=== PATIENT | female | born 2000 | race Hispanic/Latino ===

== ENCOUNTER 2022-04-17 03:34 | Emergency (ER) | payer OTHER ==
--- OUTSIDE RECORDS SUMMARY | 2022-04-17 03:36 | XMS REPORT | Continuity of Care Document ---
:2000 Author Organization [facility] t Address [address] [place] [address] Care Team Providers Name Role Phone PCP, PATIENT DOES NOT HAVE A Primary Care Physician Unavaila MONSTER Arellano Attending Clinician Unavailable Monster Meraz NP Attending Clinician MONSTER MERAZ Admitting Clinician Unavailable Problems Condition Condition Condition Status Onset Resolution Last Treating Co mments Source Name Details Category Date Date Treatment Clinician Date No known No known Disease Unive rs active active ity of problems problems [facility] Allergies, Adverse Reactions, Alerts Allergy Allergy Status Severity Reaction(s) Onset Inactive Treating Comm ents Source Name Type Date Date Clinician NO KNOWN Drug Active Univers ALLERGIE Class ity of [facility] Social History Social Habit Start Date Stop Date Quantity Comments Source Exposure to Not sure [facility] SARS-CoV-2 (event) Medica l Branch Sex Assigned At [birth year] [facility] 00:00:00 00:00:00 [facility] Smoking Status Start Date Stop Date Source Unknown if ever smoked [facility] Medications Ordered Filled Start Stop Current Ordering Indication Dosage Frequency Signature Comments Components Source Medication Medication Date Date Medication? Clinician (SIG) Name Name ketorolac 2020-07- No [id number] 30mg 30 mg, Univers (TORADOL) 09-12 Slow IV ity of injection 21:45: 20:43 Push, [place] 30 mg 00 :00 ONCE, 1 Medical dose, On Branch 07/12/21 at 1545, Routine
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 ibuprofen 2020-07 Yes [id number] 600mg Take 1 Univers 600 mg 2-17 tablet by ity of tablet 00:00: mouth [place] 00 every 6 Medical (six) Branch hours as needed for Pain (scale 4-6). Vital Signs Vital Name Observation Time Observation Value Comments Source Systolic blood 2021-07-12 22:31:00 112 mm[Hg] [facility] Diastolic blood 2021-07-12 22:31:00 78 mm[Hg] [facility] Body temperature 2021-07-12 22:31:00 36.56 Fernanda [facility] Respiratory rate 2021-07-12 22:31:00 18 /min [facility] Oxygen saturation in 2021-07-12 22:31:00 99 /min [facility] Arterial blood by [facility] Pulse oximetry Branch Heart rate 2021-07-12 17:54:00 92 /min [facility] Body weight 2021-07-12 17:54:00 90.719 kg [facility] Procedures Procedure Date / Time Performed Performing Clinician Cherry e CT ABDOMEN PELVIS W 2021-07-12 21:02:26 Monster Meraz [facility] CONTRAST [facility] POCT TEST 2021-07-12 18:04:00 Balbina Powell [facility] LIPASE 2021-07-12 17:59:00 Balbina Powell [facility] COMP. METABOLIC PANEL 2021-07-12 17:59:00 Balbina Powell [facility] ([id number]) [facility] CBC WITH DIFF 2021-07-12 17:59:00 Balbina Powell [facility] URINALYSIS 2021-07-12 17:59:00 Balbina Powell [facility] COVID-19 (ID NOW RAPID 2021-07-12 17:59:[address] [facility] TESTING) Medical [place] NOTICE OF PRIVACY 2021-07-12 17:49:33 Doctor Unassigned, No [facility] PRACTICES Name [facility] CONSENT/REFUSAL FOR 2021-07-12 17:49:01 Doctor Unassigned, No [facility] DIAGNOSIS AND Name [facility] TREATMENT Encounters Start End Encounter Admission Attending Care Care Encounter Source Date/Time Date/Time Type Type Clinicians Facility Department ID 2021-07-12 2021-07-12 Emergency X [facility] ERT [id number] Univers 12:05:00 17:01:00 MONSTER bob [facility] [place] [facility] 2021-07-12 2021-07-12 Emergency [facility] [id number] Univers 12:05:00 17:01:00 Monster MCCORD [id number] paulino [facility] [id number] [facility] [id number] [address] Results Test Description Test Time Test Comments Results Result Comments Source Complete Metabolic Panel 2021-07-12 18:22:29 Test Item Value Reference Range Interpretation Comme nts NA (test code = 7741920192) 139 mmol/L 135-145 K (test code = 0295791425) 4.4 mmol/L 3.5-5.0 CL (test code = 0991909222) 102 mmol/L 98-108 CO2 TOTAL (test code = 27 mmol/L 23-31 5835951088) AGAP (test code = 4999274505) 2-16 BUN (test code = 0517891614) 15 mg/dL 7-23 GLUCOSE (test code = 1176804226) 98 mg/dL 70-110 CREATININE (test code = 0.63 mg/dL 0.50-1.04 3369618023) TOTAL BILI (test code = 1.0 mg/dL 0.1-1.7 2766081495) CALCIUM (test code = 9842713364) 9.5 mg/dL 8.6-10.6 T PROTEIN (test code = 8.2 g/dL 6.3-8.2 2314667783) ALBUMIN (test code = 3348119603) 4.6 g/dL 3.5-5.0 ALK PHOS (test code = 9631878437) 42 U/L 34-122 ALTv (test code = 1742-6) 17 U/L 5-35 AST(SGOT) (test code = 21 U/L 13-40 1306446639) eGFR (test code = 9928005015) mL/min/1.73m2 CADY (test code = CADY) Association of Glomerular Filtration Rate (GFR) and Staging of Kidney Disease* + +--------- + ----+| GFR (mL/min/1.73 m2) ?| With Kidney Damage ?| ?Without Kidney Damage+ +--- + +| ?>90 ?| ?Stage one ?| ? Normal ?+ +-------- + -----+| ?60-89 ?| ?Stage two ?| ? Decreased GFR ? + +--------- + ----+| ?30-59 ?| ?Stage three ?| ? Stage three ? + +--------- + ----+| ?15-29 ?| ?Stage four ? | ? Stage four ?+ +-------- + -----+| ?<15 (or dialysis) ? ?| ?Stage five ? | ? Stage five ?+ +-------- + -----+ *Each stage assumes the associated GFR level has been in effect for at least three months. ?Stages 1 to 5, with or without kidney disease, indicate chronic kidney disease. Notes: Determination of stages one and two (with eGFR >59mL/min/1.73 m2) requires estimation of kidney damage for at least three months as defined by structural or functional abnormalities of the kidney, manifested by either:Pathological abnormalities or Markers of kidney damage (including abnormalities in the composition of the blood or urine or abnormalities in imaging tests). [facility] [id number] 18:22:29 Test Item Value Reference Range Interpretation Comments LIPASE (test code = 8293369454) 98 U/L 0-220 Lab Interpretation (test code = Normal 41285-2) [facility] with [id number] 18:12:27 Test Item Value Reference Range Interpretation Comments WBC (test code = See_Comment [Automated 6690-2) message] The sy stem which generated this result transmitted reference range : 4.30 - 11.10 10*3/?L. The reference range was not used to interpret this result as normal/abnormal . RBC (test code = See_Comment [Automated 789-8) message] The sy stem which generated this result transmitted reference range : 3.93 - 5.25 10*6/?L. The reference range was not used to interpret this result as normal/abnormal . HGB (test code = 12.2 g/dL 11.6-15.0 718-7) HCT (test code = 40.0 % 35.7-45.2 4544-3) MCV (test code = 81.1 fL 80.6-95.5 787-2) MCH (test code = 24.7 pg 25.9-32.8 L 785-6) MCHC (test code = 30.5 g/dL 31.6-35.1 L 786-4) RDW-SD (test code = 42.4 fL 39.0-49.9 08565-2) RDW-CV (test code = 14.3 % 12.0-15.5 788-0) PLT (test code = See_Comment [Automated 777-3) message] The sy stem which generated this result transmitted reference range : 166 - 358 10*3/ ?L. The reference r shahid was not used to interpret this result as normal/abnormal . MPV (test code = 12.3 fL 9.5-12.9 54354-6) NRBC/100 WBC (test See_Comment [Automat ed code = 7788092975) message] The system which generated this result transmitted reference range : 0.0 - 10.0 /100 WBCs. The refer ence range was not u sed to interpret th is result as normal/abnormal . NRBC x10^3 (test code <0.01 See_Comment [Auto mated = 6675770270) message] The s ystem which generated this result transmitted reference range : 10*3/?L. The reference range was not used to interpret this result as normal/abnormal . GRAN MAT (NEUT) % 65.5 % (test code = 770-8) IMM GRAN % (test code 0.40 % = 8085005111) LYMPH % (test code = 27.9 % 736-9) MONO % (test code = 4.7 % 5905-5) EOS % (test code = 1.2 % 713-8) BASO % (test code = 0.3 % 706-2) GRAN MAT x10^3(ANC) 4.78 10*3/uL 1.88-7.09 (test code = 2474573092) IMM GRAN x10^3 (test 0.03 10*3/uL 0.00-0.06 code = 5433249384) LYMPH x10^3 (test code 2.04 10*3/uL 1.32-3.29 = 731-0) MONO x10^3 (test code 0.34 10*3/uL 0.33-0.92 = 742-7) EOS x10^3 (test code = 0.09 10*3/uL 0.03-0.39 711-2) BASO x10^3 (test code <0.03 0.01-0.07 = 704-7) Lab Interpretation Abnormal (test code = 01650-8) [facility] [id number] 18:04:00 Test Item Value Reference Range Interpretation Comments POCT PREG (test code = 1605) negative On board controls acceptable with present C Line (test code = 3574) POCT PREG LOT # (test code = 3575) [id number] POCT PREG TEST DATE (test code = 3576) Lab Interpretation (test code = Normal 04650-9) [facility]"
[2022-04-17 04:51] LABS: Urine Blood 3+ (Negative); Urine Glucose Negative (Negative); Urine Protein Trace (Negative); Urine Specific Gravity 1.025 (1.005-1.030)
[2022-04-17 05:36] LABS: Absolute Lymphocytes (CBC) 2.1 K/uL (0.7-4.9); Hematocrit 38.1 % (36.0-45.0); Lymphocytes % 27.3 % (15.3-44.8); MCV 81.8 fL (80-100); MPV 9.6 fL (7.6-11.3); RBC Red Blood Cell Count 4.66 M/uL (3.86-4.86)
[2022-04-17 06:10] LABS: Potassium 3.8 mmol/L (3.5-5.1)
--- NOTE | 2022-04-17 06:33 | EDPHYS ---
Physician Documentation [facility] Name: Darin Bernard Age: 22 yrs Sex: Female : 2000 Arrival Date: 04/17/2022 Time: 03:38 Bed 28 Private MD: ED Physician Dave Stanford HPI: 04/17 05:51 This 22 yrs old Female presents to ER via Ambulatory with complaints of ms3 Vaginal Bleeding, + Preg <12wks, Abdominal Cramping. 05:51 22-year-old female with no past medical history presents for vaginal spotting ms3 that began just prior to arrival. Patient states she is approximately 12 weeks , last menstrual period November 20, 2021. Patient states she has not had care. Patient states her discomfort is a 3/10 and described as cramping on the left side. Patient denies alleviating or inciting factors. Patient denies nausea, vomiting.. 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 - Social history:: Smoking status: Patient/guardian denies using tobacco, the patient reports quitting approximately 1 years ago. ROS: 05:51 Constitutional: Negative for fever, and chills. ENT: Negative for injury, pain, and ms3 discharge, Neck: Negative for injury, pain, and swelling, Cardiovascular: Negative for chest pain, and palpitations. Respiratory: Negative for shortness of breath, cough, wheezing, and pleuritic chest pain, Abdomen/GI: Negative for abdominal pain, nausea, vomiting, diarrhea, and constipation, MS/Extremity: Negative for injury and deformity, Skin: Negative for injury, rash, and discoloration, Psych: Negative for depression, anxiety, suicide ideation, homicidal ideation, and hallucinations. 05:51 : Positive for vaginal bleeding. 05:51 All other systems are negative. Exam: 05:51 Constitutional: This is a well developed, well nourished patient who is awake, alert, ms3 and in no acute distress. Head/Face: Normocephalic, atraumatic. Neck: Trachea midline, no cervical lymphadenopathy. Supple, full range of motion without nuchal rigidity, or vertebral point tenderness. No Meningismus. Chest/axilla: Normal chest wall appearance and motion. Nontender with no deformity. Cardiovascular: Regular rate and rhythm with a normal S1 and S2. No gallops, murmurs, or rubs. Normal PMI, no JVD. No pulse deficits. Respiratory: Lungs have equal breath sounds bilaterally, clear to auscultation and percussion. No rales, rhonchi or wheezes noted. No increased work of breathing, no retractions or nasal flaring. Abdomen/GI: Soft, non-tender, with normal bowel sounds. No distension or tympany. No guarding or rebound. No evidence of tenderness throughout. Back: No spinal tenderness. No costovertebral tenderness. Full range of motion. Skin: Warm, dry with normal turgor. Normal color with no rashes, no lesions, and no evidence of cellulitis. MS/ Extremity: Pulses equal, no cyanosis. Neurovascular intact. Full, normal range of motion. Psych: Awake, alert, with orientation to person, place and time. Behavior, mood, and affect are within normal limits. Vital Signs: 04:08 BP 105 / 72; Pulse 77; Resp 18 S; Temp 98.2; Pulse Ox 99% on R/A; Weight 90.72 kg; ha1 Height 5 ft. 5 in. (165.10 cm); Pain 3/10; 04:15 BP 105 / 72; Pulse 77; Resp 18; Pulse Ox 99% on R/A; ha1 05:10 BP 95 / 73; Pulse 72; Resp 18 S; Pulse Ox 99% on R/A; ha1 06:51 BP 98 / 65; Pulse 82; Resp 17 S; Pulse Ox 99% on R/A; ha1 04:08 Body Mass Index 33.28 (90.72 kg, 165.10 cm) ha1 MDM: 04:41 Patient medically screened. ms3 05:51 Differential diagnosis: threatened Ab, inevitable Ab, complete Ab, retained Ab, missed ms3 Ab, ectopic . 06:29 Data reviewed: vital signs, nurses notes, lab test result(s), radiologic studies, and ms3 as a result, I will discharge patient. Counseling: I had a detailed discussion with the patient and/or guardian regarding: the historical points, exam findings, and any diagnostic results supporting the discharge/admit diagnosis, lab results, radiology results, the need for outpatient follow up, to return to the emergency department if symptoms worsen or persist or if there are any questions or concerns that arise at home. Special discussion: I discussed with the patient/guardian in detail that at this point there is no indication for admission to the hospital. It is understood, however, that if the symptoms persist or worsen the patient needs to return immediately for re-evaluation. ED course: Discussed labs, ultrasound with patient. Patient to follow-up Dr. Carter in 2 to 3 days. Patient understands agrees plan. All questions were answered. Return precautions discussed include worsening symptoms, or any other concerns. On reevaluation patient is alert and oriented x4, no apparent distress, nontoxic, ambulatory in emergency department, speaking full sentences. 04/17 04:13 Order name: Abo/rh Typing; Complete Time: 06:29 ms3 04/17 04:13 Order name: Basic Metabolic Panel; Complete Time: 06:29 ms3 04/17 04:13 Order name: CBC with Diff; Complete Time: 05:48 ms3 04/17 04:13 Order name: Quantitative Hcg; Complete Time: 06:29 ms3 04/17 04:51 Order name: Urine Dipstick-Ancillary; Complete Time: 05:19 EDIL 04/17 04:52 Order name: Urine --Ancillary (enter results) 04/17 04:13 Order name: IV Saline Lock; Complete Time: 05:07 ms3 04/17 04:13 Order name: Labs collected and sent; Complete Time: 05:07 ms3 04/17 04:13 Order name: NPO; Complete Time: 05:07 ms3 04/17 04:13 Order name: Urine Dipstick-Ancillary (obtain specimen); Complete Time: 05:07 ms3 04/17 04:13 Order name: US OB Limited ms3 Administered Medications: No medications were administered Point of Care Testing: Urine : 06:50 hCG Reading: Positive; ha1 Disposition Summary: 04/17/22 06:32 Discharge Ordered Location: Home ms3 Condition: Stable ms3 Diagnosis - Threatened ms3 - 11 weeks gestation of ms3 Followup: ms3 - With: Cruz Carter MD - When: 2 - 3 days - Reason: Recheck today's complaints Discharge Instructions: - Discharge Summary Sheet ms3 - Care ms3 - Threatened Miscarriage ms3 Forms: - Medication Reconciliation Form ms3 - Thank You Letter ms3 - Antibiotic Education ms3 - Prescription Opioid Use ms3 Signatures: Dispatcher [employer] EDDave Fields DO DO ms3 Missy Mckeon RN RN ha1
--- NOTE | 2022-04-17 06:33 | ER ---
Nurse's Notes [facility] Name: Darin Bernard Age: 22 yrs Sex: Female : 2000 Arrival Date: 04/17/2022 Time: 03:38 Bed 28 Private MD: Diagnosis: Threatened ;11 weeks gestation of Presentation: 04/17 04:08 Chief complaint: Patient states: I am 12 weeks and after using the bathroom I ha1 noticed I am having vaginal bleeding. Coronavirus screen: Vaccine status: Patient reports receiving the 2nd dose of the covid vaccine. [employer] Ebola Screen: No symptoms or risks identified at this time. Initial Sepsis Screen: Does the patient meet any 2 criteria? No. Patient's initial sepsis screen is negative. Does the patient have a suspected source of infection? No. Patient's initial sepsis screen is negative. Risk Assessment: Do you want to hurt yourself or someone else? Patient reports no desire to harm self or others. Onset of symptoms was April 17, 2022. 04:08 Method Of Arrival: Ambulatory ha1 04:08 Acuity: MILAG[place] 3 ha1 Triage Assessment: 04:15 General: Appears in no apparent distress. Behavior is calm, cooperative. Pain: ha1 Complains of pain in lower abdomen Pain does not radiate. Pain currently is 3 out of 10 on a pain scale. EENT: No deficits noted. No signs and/or symptoms were reported regarding the EENT system. Neuro: Level of Consciousness is awake, alert, obeys commands, Oriented to person, place, time, situation, Speech is normal. Cardiovascular: Patient's skin is warm and dry. Respiratory: Airway is patent Trachea midline Respiratory effort is even, unlabored, Respiratory pattern is regular, symmetrical. GI: No signs and/or symptoms were reported involving the gastrointestinal system. Abdomen is non-distended, obese. : No signs and/or symptoms were reported regarding the genitourinary system. Denies burning with urination. Derm: Skin is healthy with good turgor. Musculoskeletal: Circulation, motion, and sensation intact. Range of motion: intact in all extremities. 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 - Social history:: Smoking status: Patient/guardian denies using tobacco, the patient reports quitting approximately 1 years ago. Screenin:59 Abuse screen: Denies threats or abuse. Denies injuries from another. Nutritional ha1 screening: No deficits noted. Tuberculosis screening: No symptoms or risk factors identified. Fall Risk None identified. Assessment: 04:19 General: see triage. ha1 05:08 Obstetrical Assessment: General assessment: awake and alert, skin warm and dry, ha1 respirations even and unlabored. Reassessment: Patient and/or family updated on plan of care and expected duration. Pain level reassessed. Patient is alert, oriented x 3, equal unlabored respirations, skin warm/dry/pink. Vital Signs: 04:08 BP 105 / 72; Pulse 77; Resp 18 S; Temp 98.2; Pulse Ox 99% on R/A; Weight 90.72 kg; ha1 Height 5 ft. 5 in. (165.10 cm); Pain 3/10; 04:15 BP 105 / 72; Pulse 77; Resp 18; Pulse Ox 99% on R/A; ha1 05:10 BP 95 / 73; Pulse 72; Resp 18 S; Pulse Ox 99% on R/A; ha1 06:51 BP 98 / 65; Pulse 82; Resp 17 S; Pulse Ox 99% on R/A; ha1 04:08 Body Mass Index 33.28 (90.72 kg, 165.10 cm) ha1 ED Course: 03:38 Patient arrived in ED. bp1 03:39 Dave Stanford DO is Attending Physician. ms3 04:08 Missy Mckeon, RAVINDER is Primary Nurse. ha1 04:15 Triage completed. ha1 04:15 Arm band placed on left wrist. ha1 04:48 US OB Limited In Process Unspecified. EDMS 05:07 Abo/rh Typing Sent. ha1 05:07 Basic Metabolic Panel Sent. ha1 05:07 CBC with Diff Sent. ha1 05:07 Quantitative Hcg Sent. ha1 05:07 Inserted saline lock: 20 gauge in left antecubital area, using aseptic technique. Blood ha1 collected. 05:59 Patient has correct armband on for positive identification. Bed in low position. Call ha1 light in reach. Side rails up X 1. Adult w/ patient. Client placed on continuous cardiac and pulse oximetry monitoring. NIBP monitoring applied. 06:32 Cruz Carter MD is Referral Physician. ms3 06:50 No provider procedures requiring assistance completed. IV discontinued, intact, ha1 bleeding controlled, No redness/swelling at site. Pressure dressing applied. Administered Medications: No medications were administered Medication: 06:51 VIS not applicable for this client. ha1 Point of Care Testing: Urine : 06:50 hCG Reading: Positive; ha1 Outcome: :32 Discharge ordered by . ms3 06:50 Discharged to home ambulatory, with family. ha1 06:50 Condition: stable 06:50 Discharge instructions given to patient, family, Instructed on discharge instructions, follow up and referral plans. Demonstrated understanding of instructions, follow-up care. 06:52 Patient left the ED. ha1 Signatures: Dispatcher [employer] EDMS Dave Stanford DO DO ms3 Shani Abdalla Heidy, RN RN ha1
[2022-04-17 06:54] LABS: Urine Specific Gravity/Preg 1.025 (1.005-1.030)
--- NOTE | 2022-04-18 11:31 | RAD REPORT ---
EXAM DESCRIPTION: US First Trimester , Transabdominal CLINICAL HISTORY: The patient is 22 years old and is Female; ABD PAIN TECHNIQUE: Real-time transabdominal obstetrical ultrasound of the maternal pelvis and a first trimes ter with image documentation. COMPARISON: No relevant prior studies available. FINDINGS: Gestation: Single intrauterine gestational sac and fetus. [place]-rump length 4.6 cm. Hear t rate 160 bpm. Placenta/amniotic fluid: Placenta is developing anteriorly. Uterus/cervix: Uterus is 10.8 x 6.7 x 9.2 cm in size. No myometrial mass. Ovaries: Right ovarian simple cyst 1.1 cm. Left ovary sought but not visualized. Right ovary 2.7 x 2.0 x 2.1 cm in size. No right ovarian torsion. Free fluid: No free fluid. IMPRESSION: 1. Single live with EGA 11 weeks and one day. JOSE November 05, 2022. 2. Right ovarian simple cyst 1.1 cm. 3. Left ovary sought but not visualized. Electronically signed by: Alice Elizabeth MD 04/17/2022 5:04 AM CDT Due to temporary technical issues with the PACS/Fluency reporting system, reports are being signed by the in house radiologists without review as a courtesy to insure prompt reporting. The interpreting radiologist is fully responsible for the content of the report.
[2022-04-18 22:37] VITALS: TEMP 98.2; O2SAT 99
[2022-04-18 22:55] VITALS: BP 98/65
== END 2022-04-17 06:52 | disposition home or self-care (01) ==
LOC: ER 03:34
DX: O20.0 Threatened abortion (principal); Z3A.11 11 weeks gestation of pregnancy
CPT/HCPCS: 36415; 76815; 80048; 81003; 81025; 84702; 85025; 86900; 86901; 99284